=== PATIENT | female | born 2000 | race Caucasian/White ===

== ENCOUNTER 2024-09-04 12:48 | Outpatient (CLI) | payer OTHER, SELFPAY ==
--- NOTE | ~2024-09-04 | US_ITS ---
EXAMINATION: US OB <=14 wk fetus w TV DATE: 09/04/2024 13:18 INDICATION: Uncertain dating of first trimester TECHNIQUE: Real-time pelvic ultrasound utilizing both a transvaginal and transabdominal probe was pe rformed. The interpreting radiologist was not present for the study. COMPARISON: None. FINDINGS: The uterus measures 9.0 x 5.3 x 4.6 cm. There is an intrauterine gestational sac. A yolk sac and fet al pole are identified. The crown rump length measures 2.3 cm, which correlates with an estimated ges tational age of 9 weeks and 0 days. heart motion is identified measuring 183 beats per minute ( bpm) by M-mode Doppler.Heart size The right ovary measures 4.9 x 3.5 x 2.7 cm. There are couple anechoic cysts in the right ovary measu ring 2.3 cm and 2.8 cm in maximal diameters. Vascular flow identified in the right ovary on color Dop pler. The left ovary is not visualized. There is no free fluid in the pelvis. IMPRESSION: 1. Single living fetus with heart rate of 183 bpm. 2. Gestational age by ultrasound of 9 weeks 0 day(s) +/- 6 day(s) with ultrasound estimated date of delivery (ARVIN) of 04/09/2025. Reviewed, dictated and finalized at location B. GE MANAGEMENT SYSTEM OPERATOR IMPRESSION: 1. Single living fetus with heart rate of 183 bpm. 2. Gestational age by ultrasound of 9 weeks 0 day(s) +/- 6 day(s) with ultraso und estimated date of delivery (ARVIN) of 04/09/2025.
== END 2024-09-04 12:49 | disposition home or self-care (01) ==
PROVIDERS: PCP Obstetrics & Gynecology Gynecology; Visit Provider Obstetrics & Gynecology Gynecology
DX: Z36.87 Encounter for antenatal screening for uncertain dates (principal)
CPT/HCPCS: 76801; 76817

== ENCOUNTER 2024-09-15 10:47 | Outpatient (CLI) | payer OTHER, SELFPAY ==
--- NOTE | ~2024-09-15 | US_ITS ---
EXAMINATION: US OB <= 14 weeks fetus DATE: 09/15/2024 11:35 INDICATION: Spotting in the first trimester. TECHNIQUE: Real-time transabdominal pelvic ultrasound was performed. COMPARISON: Ultrasound 09/04/2024 FINDINGS: The uterus measures 11.0 x 5.1 x 7.9 cm. There is an intrauterine gestational sac. The crown ru mp length measures 3.5 cm, which correlates with an estimated gestational age of 10 weeks and 3 day(s ) (+/-) 1 week(s) and 0 day(s). heart motion is identified measuring 184 beats per minute (bpm) by M-mode Doppler. The cervical length is 3.4 cm, which is normal. The right ovary measures 5.2 x 2. 7 x 4.7 cm. The left ovary measures 4.0 x 1.8 x 2.6 cm. There is no free fluid in the pelvis. IMPRESSION: 1. Single living intrauterine gestation with estimated date of delivery of 04/09/2025 based on the ult rasound from 09/04/2024. Reviewed, dictated and finalized at location A. OSAL OPERATOR IMPRESSION: 1. Single living intrauterine gestation with estimated date of delivery of 04/09 based on the ultrasound from 09/04/2024.
== END 2024-09-15 10:48 | disposition home or self-care (01) ==
LOC: MICIMG 10:49
PROVIDERS: PCP Obstetrics & Gynecology Gynecology; Visit Provider Obstetrics & Gynecology Gynecology
DX: O26.851 Spotting complicating pregnancy, first trimester (principal); Z3A.00 Weeks of gestation of pregnancy not specified
CPT/HCPCS: 76801